=== PATIENT | male | born 1965 | race Caucasian/White ===

== ENCOUNTER 2017-06-22 14:54 | Emergency (ER) | payer OTHER ==
[~2017-06-22] VITALS: Ht 177.8 cm; Wt 86.2 kg
[~2017-06-22 14:54] MED LIST: AMLO10TA2 PO; DIA5T PO; HYDR2TAB2 PO; MODA100T29 PO; MORP1TAB12 PO; OXYC15TA48 PO; VENL75TA PO
[2017-06-22 17:15] VITALS: BP 135/113
== END 2017-06-22 17:33 | disposition home or self-care (01) ==
LOC: ER 14:54
DX: S61.211A Laceration without foreign body of left index finger without damage to nail, initial encounter (principal); S61.213A Laceration without foreign body of left middle finger without damage to nail, initial encounter; L03.012 Cellulitis of left finger; I10 Essential (primary) hypertension; Z88.6 Allergy status to analgesic agent; Z88.0 Allergy status to penicillin; Z79.899 Other long term (current) drug therapy; W45.8XXA Other foreign body or object entering through skin, initial encounter; Y93.89 Activity, other specified; Y92.89 Other specified places as the place of occurrence of the external cause; Y99.8 Other external cause status
CPT/HCPCS: 29130; 73130